=== PATIENT | female | born 1965 | race Caucasian/White ===

== ENCOUNTER 2018-03-02 07:43 | Day surgery (SDC) | payer OTHER ==
[~2018-03-02 07:43] MED LIST: NACL 0.9% 1000 ML 1,000 ML ONE
[2018-03-02] MEDS ORDERED: NACL 0.9% 1000 ML 1,000 ML IV SCH (08:00)
--- NOTE | 2018-03-02 08:50 | Anesthesia Consultation ---
Anesthesia Consult and Med Hx Date of service: 03/02/18 - Airway Anesthetic Teeth Evaluation: Good ROM Head & Neck: Adequate Mental/Hyoid Distance: Adequate Mallampati Class: Class II Intubation Access Assessment: Probably Good - Pulmonary Exam CTA: Yes - Cardiac Exam Cardiac Exam: RRR - Pre-Operative Health Status ASA Pre-Surgery Classification: ASA2 Proposed Anesthetic Plan: MAC - Pre-Anesthesia Comment Pre-Anesthesia Comments: Lisinopril for kidney protection - Endocrine Hx Non-Insulin Dependent Diabetes: Yes
--- NOTE | 2018-03-02 08:50 | Anesthesia Day of Surgery ---
Anesthesia Day of Surgery - Day of Surgery Patient Examined: Yes Patient H&P Reviewed: Yes Patient is NPO: Yes
[2018-03-02] MEDS ORDERED: DIPRIVAN 10 MG/ML IV ONE ×2 (08:51→08:52)
[2018-03-02] MEDS ORDERED: WATER FOR IRRIG STERILE ONE (09:10)
[2018-03-02] MEDS ORDERED: WATER FOR IRRIG STERILE IR ONE (09:10)
--- NOTE | 2018-03-02 10:01 | Operative Report ---
Operative Report Operative Report: Date of procedure: 03/02/2018 Procedure: Colonoscopy. Attending physician: Santos Houser MD [employer] Machine Operator Helper: Santos Houser MD Indication: Patient is a 53-year-old female who presents for screening colonoscopy. The colonoscopy serves to evaluate patient for colorectal cancer screening. Consent: Informed consent was obtained after advising the patient and family regarding nature of this procedure, its indications, potential benefits as well as possible complications including but not limited to bleeding perforation and adverse reaction to medication, infection as well as other cardiopulmonary complications. An informed written and verbal consent was then obtained after due opportunity was provided for questions and answers. Monitoring: Patient was monitored continuously with pulse oximetry and electrocardiographic recordings as well as blood pressure recordings. Vital signs remained stable throughout this procedure with no untoward events. Preoperative assessment: Patient was assessed immediately prior to this procedure for capacity to tolerate monitored anesthesia care and moderate sedation as well as general anesthesia. Patient's ASA classification is 2, Mallampati class is 2, Hyomental distance is 3. Instrument: [id number] video colonoscope Medications: Propofol given intravenously in divided doses. For details please refer to anesthesia records. Description of procedure: Patient was placed in the left lateral decubitus position after achieving sedation, a digital rectal examination was performed following which the colonoscope was introduced into the anal verge and advanced to the cecum which was identified by the cecal valve, the appendiceal orifice, as well as by the cecal strap and direct transillumination. The colonoscope was subsequently withdrawn with careful inspection of all mucosal surfaces. Patient tolerated this procedure well and was subsequently taken to the recovery room. The following findings were noted. Findings: Patient had diminutive diverticula involving the sigmoid and descending colon. The rest of the colon to the cecum was normal. On the retroflex view at the anal verge, patient had prominent internal hemorrhoids. Impression: Mild diverticulosis. Prominent Internal hemorrhoids. Plan: High-fiber diet. Repeat colonoscopy in 10 years.
--- NOTE | 2018-03-02 10:02 | Discharge Summary ---
Short Stay Discharge Plan Activity: advance as tolerated Weight Bearing Status: Weight Bear as Tolerated Diet: regular Follow up with: NATALIE CM MD [Primary Care Provider] - 7 Days
[2018-03-02 10:30] VITALS: BP 120/68
--- NOTE | 2018-03-02 14:49 | Post Anesthesia Evaluation ---
- Post Anesthesia Evaluation Patient Participated: Yes Airway Patent: Yes Stable Respiratory Function: Yes Nausea/Vomiting: No Temp > 96.8F: Yes Pain Manageable: Yes Adequeate Hydration: Yes Anesthesia Complications: No
== END 2018-03-02 07:44 | disposition home or self-care (01) ==
LOC: GIO 07:43
PROVIDERS: ATTEND Internal Medicine Gastroenterology
DX: Z12.11 Encounter for screening for malignant neoplasm of colon (principal); K57.30 Diverticulosis of large intestine without perforation or abscess without bleeding; K64.8 Other hemorrhoids; E11.9 Type 2 diabetes mellitus without complications; L40.9 Psoriasis, unspecified; Z79.899 Other long term (current) drug therapy; Z79.84 Long term (current) use of oral hypoglycemic drugs
CPT/HCPCS: 45378; 82962; J2704; J7030